=== PATIENT | female | born 2000 | race Caucasian/White ===

== ENCOUNTER 2020-10-20 19:51 | Emergency (ER) | payer BC, SELFPAY ==
--- NOTE | ~2020-10-20 | CT_ITS ---
EXAMINATION: CT abdomen pelvis w con INDICATION: Right lower quadrant abdominal pain TECHNIQUE: Computed tomographic images of the abdomen and pelvis were obtained after the administrati on of 100 cc of Omnipaque 350 intravenous contrast. The dose-length product (DLP) was 742.38 mGy-cm. Automated exposure control and iterative reconstruction technique were employed. COMPARISON: None available FINDINGS: The lung bases are clear. The heart size is normal. The liver, spleen, pancreas, gallbladde r, and adrenal glands are normal. The kidneys are unremarkable. No pathologically enlarged abdominal or pelvic lymph nodes are identified. There is no free intraperitoneal gas or evidence of bowel obstr uction. There is moderate amount of high attenuation fluid in the pelvis. Also seen are areas of appa rent contrast extravasation in the region of the right adnexa. The visualized osseous structures are unremarkable. IMPRESSION: 1. High attenuation fluid in the pelvis and areas of apparent contrast extravasation in the right adn exa suggestive of ruptured ovarian cyst with active hemorrhage. HOGSHEAD BUILDER evaluation is recommended. These findings and recommendations were discussed with Dr. Moon Jimenez MD in the Emergency Department at 2131 hours on 10/20/2020. Reviewed, dictated and finalized at location A. ADMIRAL IMPRESSION: 1. High attenuation fluid in the pelvis and areas of apparent contrast extravas ation in the right adnexa suggestive of ruptured ovarian cyst with active hemor rhage. HOGSHEAD BUILDER evaluation is recommended. These findings and recommendations were d iscussed with Dr. Moon Jimenez MD in the Emergency Department at 2131 hours o n 10/20/2020.
[2020-10-20 20:00] VITALS: BP 136/85; PULSE 96; RESP 18; TEMP 36.8; O2SAT 98
[2020-10-20 20:31] LABS: Basophils Absolute Auto 0.1 K/mm3 (0.0-0.1); Eosinophils Absolute Auto 0.3 K/mm3 (0-0.3); Eosinophils Percent Auto 4.4 % (0-4.4); Hematocrit 37.7 % (37.0-47.0); Immature Granulocyte Absolute 0.02 K/mm3 (0.00-0.031); Immature Granulocyte Percent A 0.3 % (0-0.5); Lymphocytes Absolute Auto 2.04 K/mm3 (0.9-3.2); Lymphocytes Percent Auto 28.1 % (18.3-44.2); Mean Corpuscular HGB Conc 34.5 g/dl (32-36); Mean Corpuscular Hemoglobin 31.3 pg (26-34); Mean Corpuscular Volume 90.8 fl (80-100); Mean Platelet Volume 9.8 fl (7.4-10.4); Monocytes Absolute Auto 0.5 K/mm3 (0.1-0.6); Neutrophils Absolute Auto 4.3 K/mm3 (1.3-6.7); Neutrophils Percent Auto 59.2 % (45.5-73.1); Platelet Count Result 303 k/mm3 (150-375); Red Blood Count 4.15 M/mm3 (4.2-5.4); Red Cell Distribution Width 11.5 % (11.5-14.5); White Blood Count 7.3 K/mm3 (4.5-10.0)
[2020-10-20 20:33] LABS: Add Urine Microscopic? YES; Appearance Urine Clear (Clear); Bilirubin Urine Negative (Negative); Blood Urine 1+ (Negative); Color Urine Colorless (Yellow); Glucose Urine UA Negative (Negative); Ketones Urine Negative (Negative); Leukocyte Esterase Ur Negative LEU/UL (Negative); Nitrate Urine Negative (Negative); Protein Urine Negative (Negative); RBC Urine 0-2 /hpf (0-2); Specific Grav Ur 1.005 (1.001-1.035); Urobilinogen Urine Negative mg/dL (<2.0)
[2020-10-20 20:42] LABS: Alanine Aminotransferase 10 U/L (4-35); Albumin Level 4.2 g/dL (3.5-5.1); Alkaline Phosphatase 55 U/L (38-126); Anion Gap 5 mmol/L (8-16); Aspartate Amino Transferase 20 U/L (14-36); Bilirubin,Total 0.2 mg/dL (0.2-1.3); Blood Urea Nitrogen 5 mg/dL (7-17); Carbon Dioxide 31 mmol/L (22-30); Chloride 103 mmol/L (98-107); Estimated CRCL calculation 117 ml/min; Estimated Glomerular Filt Rate > 60; Glucose 105 mg/dL (65-105); Lipase 63 U/L (23-300); Potassium 3.9 mmol/L (3.4-5.0); Sodium 139 mmol/L (137-145)
--- NOTE | 2020-10-20 21:00 | ED.ABDPAIN ---
HPI - Abdominal Pain General Chief Complaint: Abdominal Pain Stated Complaint: Abd pain Time Seen by Provider: 10/20/20 21:01 Source: patient History of Present Illness HPI narrative: Patient is a 20 y/o female complaining of right lower abdominal pain starting 2-3 hours ago. She describes her pain as aching and rates it as 8/10 initially. There is no pain radiation. She states that she was having intercourse when this pain occurred suddenly. Her pain is improving since then. She rates her pain as 2/10 currently. She has some nausea, but no vomiting. She has no dysuria or vaginal bleeding. Related Data Allergies Allergy/AdvReac Type Severity Reaction Status Date / Time peanut Allergy Other Verified 10/20/20 20:03 Review of Systems Constitutional: Constitutional: Denies chills, Denies fever(s), Denies headache(s) and Denies weakness Eyes: Eyes: Denies blurry vision ENT: Denies headache(s) and Denies neck pain Cardiovascular: Cardiovascular: Denies chest pain and Denies dyspnea Respiratory: Respiratory: Denies cough and Denies dyspnea Gastrointestinal: Gastrointestinal: Reports abdominal pain, Denies diarrhea, Reports nausea and Denies vomiting Genitourinary: Genitourinary: Denies hematuria and Denies dysuria Musculoskeletal: Musculoskeletal: Denies back pain and Denies neck pain Neurologic: Denies headache(s) and Denies weakness Exam Const: General: no acute distress and well developed Orientation/consciousness: oriented to person, oriented to place, oriented to time and patient oriented x3 HENMT: Head: normocephalic Ears: external ears normal General nose exam: Normal external nose present Eyes: General: appearance normal, both eyes and all related structures Conjunctivae: conjunctivae normal Neck: Neck: normal visual inspection and full ROM Chest: Chest palpation & inspection: normal inspection of the chest and no tenderness Resp: Effort & Inspection: normal respiratory effort Auscultation: clear to auscultation bilaterally Cardio: Rate: regular rate Rhythm: regular rhythm GI: GI Palp: No abdominal tenderness and Yes Soft to palpation Skin: General skin exam: normal color and turgor normal Neuro: General: oriented to person, oriented to place, oriented to time and patient oriented x3 Cognition (Neuro): normal cognition Extrem: General: normal to inspection, full ROM and no pedal edema Psych: Appearance: grossly normal Mental Status: mental status grossly normal Affect: normal affect Course Consultations Consultation #1: Discussed with Dr. Vergara (Loss Prevention Officer), who recommends discharge and take NSAIDS for pain as needed. Date: 10/20/20 Time: 23:19 Vital Signs Vital signs: Vital Signs Temperature 36.8 C 10/20/20 20:00 Pulse Rate 96 10/20/20 20:00 Respiratory Rate 18 10/20/20 20:00 Blood Pressure 136/85 10/20/20 20:00 Pulse Oximetry 98 10/20/20 20:00 Temperature 36.6 C 10/20/20 23:33 Pulse Rate 80 10/20/20 23:33 Respiratory Rate 16 10/20/20 23:33 Blood Pressure 130/85 10/20/20 23:33 Pulse Oximetry 100 10/20/20 23:33 MDM - Abdominal Pain Lab Data Result diagrams: 10/20/20 22:49 10/20/20 20:18 Labs: Lab Results 10/20/20 10/20/20 10/20/20 Range/Units 20:18 20:18 20:18 WBC 7.3 (4.5-10.0) K/mm3 RBC 4.15 L (4.2-5.4) M/mm3 Hgb 13.0 (12.0-15.0) g/dL Hct 37.7 (37.0-47.0) % MCV 90.8 (80-100) fl MCH 31.3 (26-34) pg MCHC 34.5 (32-36) g/dl RDW 11.5 (11.5-14.5) % Plt Count 303 (150-375) k/mm3 MPV 9.8 (7.4-10.4) fl Immature Gran % (Auto) 0.3 (0-0.5) % Neut % (Auto) 59.2 (45.5-73.1) % Lymph % (Auto) 28.1 (18.3-44.2) % Rains % (Auto) 7.0 (2.6-8.5) % Eos % (Auto) 4.4 (0-4.4) % Baso % (Auto) 1.0 (0.2-1.2) % Lymph # (Auto) 2.04 (0.9-3.2) K/mm3 Rains # (Auto) 0.5 (0.1-0.6) K/mm3 Eos # (Auto) 0.3 (0-0.3) K/mm3 Baso # (Auto) 0.1 (0.0-0.1) K/
[2020-10-20] MEDS: SODIUM CHLORIDE 0.9% IV 1,000 ML 999 ML IV CONT (21:47)
[2020-10-20 22:56] LABS: Hematocrit 34.5 % (37.0-47.0); Hemoglobin 11.8 g/dL (12.0-15.0)
[2020-10-20 23:33] VITALS: BP 130/85; PULSE 80; RESP 16; TEMP 36.6; O2SAT 100
== END 2020-10-20 23:39 | disposition home or self-care (01) ==
PROVIDERS: Emergency Medicine; Emergency Provider Emergency Medicine
DX: N83.201 Unspecified ovarian cyst, right side (principal)
CPT/HCPCS: 36415; 74177; 80053; 81001; 81025; 83690; 85014; 85018; 85025; 96360; 99284; J7030; Q9967

== ENCOUNTER 2025-07-03 10:44 | Outpatient (CLI) | payer BC, SELFPAY ==
[2025-07-03 11:13] LABS: Hematocrit 34.9 % (37.0-47.0); Hemoglobin 12.2 g/dL (12.0-15.0); Immature Granulocyte Percent A 0.4 % (0-0.5); Lymphocytes Absolute Auto 1.52 K/mm3 (0.9-3.2); Mean Corpuscular HGB Conc 35.0 g/dl (32-36); Mean Corpuscular Hemoglobin 31.4 pg (26-34); Mean Corpuscular Volume 89.9 fl (80-100); Nucleated Red Blood Cells Absolute Auto 0.000 K/mm3 (0.0-0.012); Nucleated Red Blood Cells Perc 0.0 % (0.0-0.2); Platelet Count Result 252 k/mm3 (150-375); Red Blood Count 3.88 M/mm3 (4.2-5.4); White Blood Count 7.3 K/mm3 (4.5-10.0)
[2025-07-03 12:09] LABS: Syphilis IgG/IgM Antibody Non-Reactive (Nonreactive)
[2025-07-03 12:16] LABS: HIV 1/2 Ab P24 Ag Result Negative (Negative)
[2025-07-03 12:19] LABS: Hepatitis B Surface Antigen Negative (Negative)
[2025-07-03 12:21] LABS: Beta HCG Quantitative 61395.00 mIU/ML
[2025-07-04 07:09] LABS: Cytomegalovirus (CMV) Ab, IgG <0.60 U/mL (0.00-0.59)
[2025-07-04 15:09] LABS: Varicella-Zoster Ab, IgG Reactive (Non Reactive); Varicella-Zoster Ab, IgM <0.91 index (0.00-0.90)
[2025-07-08 14:08] LABS: Parvovirus B19, IgG 4.0 index (0.0-0.8); Parvovirus B19, IgM 0.1 index (0.0-0.8)
== END 2025-07-03 10:45 | disposition home or self-care (01) ==
PROVIDERS: Visit Provider Obstetrics & Gynecology
DX: N91.2 Amenorrhea, unspecified (principal)
CPT/HCPCS: 36415; 84702; 85025; 86593; 86644; 86703; 86747; 86762; 86787; 86850; 86900; 86901; 87086; 87340; G0432